=== PATIENT | female | born 2000 | race Caucasian/White ===

== ENCOUNTER 2018-02-15 22:39 | Emergency (ER) | payer OTHER ==
[~2018-02-15] VITALS: Ht 160 cm; Wt 68.0 kg
[~2018-02-15 22:39] MED LIST: AZITHROMYCIN 2250 MG PO; BACITRACIN 500U30 G1 TOP; BACTRIM 400-801 EACH PO; BACTRIM DS TAB1 EACH PO; NOHOMEMEDICATIONS
[2018-02-16] MEDS ORDERED: TRAMADOL 50 MG50 MG PO (00:48)
[2018-02-16] MEDS ORDERED: CYCLOBENZAPRINE5 MG PO (00:48)
[2018-02-16 01:09] VITALS: BP 110/66
== END 2018-02-16 01:10 | disposition home or self-care (01) ==
LOC: M.ERS 22:39
DX: M54.6 Pain in thoracic spine (principal); M54.5 Low back pain